=== PATIENT | female | born 1960 | race American Indian/Alaskan Native ===

== ENCOUNTER 2017-02-25 23:38 | Inpatient (IN) | payer SELFPAY ==
[2017-02-26] MEDS ORDERED: Oxycodone/Acetaminophen 5/325 mg Tab ONE (04:10)
[2017-02-26] MEDS ORDERED: Sodium Chloride 0.9% 1,000 ML IV SCH (05:30)
[2017-02-26] MEDS ORDERED: Oxycodone/Acetaminophen 10/325 mg Tab PO PRN (09:15)
--- NOTE | 2017-02-26 15:58 | CON ---
DATE: 02/26/2017 LOCATION: 575, bed 2. REASON FOR CONSULTATION: Shingles. We have a 56-year-old female with a past medical history of benign right jaw cyst presenting with wor sening of a rash on the right forehead which started about 3-4 days ago and it is starting to become more painful. She states that she has never had this kind of rash before, never had this kind of augustus n associated with a rash. Denies fever or chills. No nausea, no vomiting. No headache, no dizzines s. No blurring of vision currently. No dysphagia, no sore throat, no odynophagia, no rhinorrhea. N o abdominal pain, no diarrhea. No dysuria, no hematuria. The infectious disease consult is requested to further evaluate for the possibility of shingles in this patient. REVIEW OF SYSTEMS: As per history of present illness. PAST MEDICAL HISTORY: As per history of present illness. FAMILY MEDICAL HISTORY: Noncontributory. PERSONAL AND SOCIAL HISTORY: The patient denies alcohol abuse or illicit drug use. OBJECTIVE: VITAL SIGNS: The patient is afebrile. The heart rate is 72, respiratory rate 20. HEAD AND NECK: The patient is normocephalic. There is a rash noted with vesicular lesions noted on the forehead area which is compatible with the V1 distribution of the trigeminal nerve. There is no note of vesicles on the tip of the nose, meaning negative Hernanedz's sign. No cervical lymphadenop athy. No meningismus present. HEART: S1, S2 are normal. LUNGS: Decreased breath sounds bilaterally with no rales noted. ABDOMEN: Soft, nontender, nondistended. LABORATORY DATA: Unfortunately, we are unable to review the labs of the patient because the computer systems are down. ASSESSMENT: We have a 56-year-old female with a past medical history of benign cyst on the right jaw, coming in with rash on the forehead and this is more likely a herpes zoster in the distribution of the right trigeminal nerve V1 distribution/single dermatome. PLAN: We have discussed this with the medical team. We have started the patient on IV acyclovir 10 mg IV q. 8 as long as the patient has good and normal renal function. We will leave the pain medicat ions at the discretion of the medical team. We have also asked for HIV test for this patient, [address] [place] [address]. The patient should be on contact isolation. Since this patient does not have a history of immunocompromise as well as there is only 1 dermatome of distribution, there is no need for airborne precautions for this patient. We will continue to follow this patient clinically and monitor her cl inical response to our treatment. Rafael Rosenberg M.D. cc: [id number] TT: 02/26/2017 15:57:27 Confirmation # [id number] Dictation # [id number] [email or web address]
[2017-02-26] MEDS ORDERED: HYDROmorphone 1 mg/ml ISec ONE (17:05)
[2017-02-26] MEDS ORDERED: Morphine 2 mg/ml ISec IVP STA (19:59)
--- NOTE | 2017-02-26 20:48 | CP.PCM.HP ---
<GiovanashaunthereseDonnie ambriz - Last Filed: 02/26/17 20:45> History of Present Illness - History of Present Illness History of Present Illness: 56 y/o F with PMH of HTN presents to the ED for rash over the right side of her face. Pt states she began feeling an uncomfortable sensation on the right side of her face 3 days ago and it has gotten progressively more painful over the last few days. Pain is described as a sharp, throbbing type of pain and is constant in nature. Pain is a 10/10. She says she uses eucalyptus oil at home on the rash but it did not improve. Pt tried using ibuprofen, but it did not help. Pt states she has had the chicken pox in the past. She also mentions that she does have eye pain, but no change in vision. 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 Denies CP, SOB, N/V/D , fever, chills, dysuria. Admits to headaches. PMH: HTN Surgical Hx: None Social Hx: 3 cigarettes per day x 5 years. Denies alcohol or illicit drug use Allergies: NKDA Medication: Atenolol Present on Admission - Present on Admission Any Indicators Present on Admission: No Review of Systems - Constitutional Constitutional: absent: Fatigue, Fever - EENT Eyes: Irritation, Pain. absent: Blind Spots, Blurred Vision, Change in Vision, Requires Corrective Lenses Nose/Mouth/Throat: absent: Nasal Congestion, Nasal Discharge - Cardiovascular Cardiovascular: absent: Chest Pain, Irregular Heart Rhythm - Respiratory Respiratory: absent: Cough, Dyspnea - Gastrointestinal Gastrointestinal: absent: Abdominal Pain, Diarrhea, Vomiting - Genitourinary Genitourinary: absent: Dysuria, Hematuria - Integumentary Integumentary: New Lesions, Rash - Neurological Neurological: Paresthesias, Tingling. absent: Numbness, Syncope - Hematologic/Lymphatic Hematologic: absent: Easy Bleeding, Easy Bruising Meds Allergies/Adverse Reactions: Allergies Allergy/AdvReac Type Severity Reaction Status Date / Time No Known Allergies Allergy Verified 02/26/17 19:48 Physical Exam - Constitutional Appears: Non-toxic, No Acute Distress - Head Exam Head Exam: ATRAUMATIC, NORMAL INSPECTION, NORMOCEPHALIC - Eye Exam Eye Exam: Conjunctival injection, EOMI, Periorbital tenderness, PERRL Additional comments: Right eye pain with upward gaze. Vesicular rash along 1 dermatome on upper right face. - ENT Exam ENT Exam: Mucous Membranes Moist, Normal Exam - Neck Exam Neck exam: Positive for: Normal Inspection. Negative for: Lymphadenopathy - Respiratory Exam Respiratory Exam: Clear to Auscultation Bilateral, NORMAL BREATHING PATTERN. absent: Rales, Rhonchi, Wheezes - Cardiovascular Exam Cardiovascular Exam: RRR, +S1, +S2 - GI/Abdominal Exam GI & Abdominal Exam: Normal Bowel Sounds, Soft. absent: Tenderness - Extremities Exam Extremities exam: Positive for: normal inspection. Negative for: calf tenderness, pedal edema - Neurological Exam Neurological exam: Alert, CN II-XII Intact, Oriented x3 - Psychiatric Exam Psychiatric exam: Normal Affect, Normal Mood - Skin Skin Exam: Rash Additional comments: Vesicular rash on right upper face. Assessment & Plan - Assessment and Plan (Free Text) Plan: 56 y/o F with PMH of HTN presents with herpes zoster opthalmicus. Pt will be admitted for IV antibiotics and have an ophthalmology and ID consult. Pt will be placed on contact precautions. 1. Herpes Zoster Opthalmicus Acyclovir 550 mg IV q8h Dilaudid 0.5 mg q4h NS @ 125 cc/hr Contact precautions Opthalmology consult, Dr. Glasgow ID consult, Dr. Rausch 2. HTN Continue Atenolol 3. Tobacco use Smoking cessation counseled 4. PPX Protonix Zofran Seen, reviewed, and discussed with attending Yoana, PGY-1 <Leslee Garcia - Last Filed: 02/26/17 21:00> Attending/Attestation - Attestation I have personally seen and examined this patient.: Yes I have fully participated in the care of the patient.: Yes I have reviewed all pertinent clinical information: Yes Notes (Text): 02/26/17 21:00 Patient was seen with medical record librarians teacher in the ER. Agree with history, physical examination, assessment and plan.
[2017-02-26 22:06] LABS: BLOOD UREA NITROGEN 11 mg/dL (7-21); CALCIUM 10.3 mg/dL (8.4-10.5); CARBON DIOXIDE 30 mmol/L (21-33); CHLORIDE 95 mmol/L (98-107); GFR AFRICAN-AMERICAN > 60; GLUCOSE,RANDOM 106 mg/dL (70-110); POTASSIUM 4.3 mmol/L (3.6-5.0); SODIUM 135 mmol/L (132-148)
[2017-02-26 22:07] LABS: ALB/GLOB RATIO 0.7 (1.1-1.8); ALKALINE PHOSPHATASE 93 U/L (38-133); ALT/SGPT 26 U/L (7-56); AST/SGOT 41 U/L (15-39); BILIRUBIN,TOTAL 1.1 mg/dL (0.2-1.3); TOTAL PROTEIN 11.3 g/dL (5.8-8.3)
[2017-02-26] MEDS: HYDROmorphone 0.5 mg/0.5 ml ISec IVP PRN (22:11)
[2017-02-27] MEDS: HYDROmorphone 0.5 mg/0.5 ml ISec IVP PRN ×4 (01:52→22:19)
[2017-02-27] MEDS: Sodium Chloride 0.9% 1,000 ML IV SCH ×2 (06:19→15:41)
[2017-02-27 07:21] LABS: HEMATOCRIT 30.9 % (36.0-48.0); MEAN CELL VOLUME 90.6 fL (80.0-105.0); MEAN CORPUSCULAR HEMOGLOBIN 31.1 pg (25.0-35.0); MEAN CORPUSCULAR HGB CONC 34.3 g/dl (31.0-37.0); MEAN PLATELET VOLUME 9.6 fl (7.0-11.0); RED CELL DISTRIBUTION WIDTH 12.6 % (11.5-14.5); WHITE BLOOD COUNT 4.1 10^3/ul (4.5-11.0)
[2017-02-27 08:12] LABS: BLOOD UREA NITROGEN 10 mg/dL (7-21); CALCIUM 8.8 mg/dL (8.4-10.5); CARBON DIOXIDE 29 mmol/L (21-33); CHLORIDE 98 mmol/L (98-107); GFR AFRICAN-AMERICAN > 60; GLUCOSE,RANDOM 96 mg/dL (70-110); POTASSIUM 4.1 mmol/L (3.6-5.0); SODIUM 133 mmol/L (132-148)
--- NOTE | 2017-02-27 08:58 | CON ---
DATE: 02/27/2017 The patient was admitted to the [facility] with herpes zoster ophthalmicus on the right side. VISUAL EXAMINATION: Her vision is 20/20 in both eyes. The eye exam is normal except for an extensiv e herpes zoster on the right upper lid with edema throughout the right upper lid and the right lower lid. Extraocular movement is normal. Corneal exam is normal. ASSESSMENT: The patient has herpes zoster ophthalmicus. I agree with the acyclovir treatment. I re commended that they add Viroptic 1 drop to the right eye 4 times a day. Elijah Glasgow MD cc: 40 TT: 02/27/2017 08:57:50 Confirmation # [id number] Dictation # [id number] en
[2017-02-27] MEDS: TRIFLURIDINE OU SCH ×3 (10:00→18:20)
[2017-02-27] MEDS: Pantoprazole 40 mg EC Tab PO SCH ×2 (10:04→10:07)
[2017-02-27] MEDS: Oxycodone/Acetaminophen 10/325 mg Tab PO PRN (10:07)
--- NOTE | 2017-02-27 10:41 | CP.PCM.PN ---
<Kiah Levine - Last Filed: 02/27/17 13:16> Subjective - Date & Time of Evaluation Date of Evaluation: 02/27/17 Time of Evaluation: 10:38 - Subjective Subjective: HOSPITALISTS PROGRESS NOTE Pt is seen and examined at bedside. No acute events overnight. Pt denies having any CP, SOB, abd pain, N/V/D/C, f/c. Pt is tolerating diet. Pt only c/ o right eye pressure and pain with movement of eye. Pt has difficulty opening her eyelid. Objective - Vital Signs/Intake and Output Vital Signs (last 24 hours): Temp Pulse Resp BP Pulse Ox 98.8 F 73 20 172/86 H 95 02/27/17 08:00 02/27/17 08:00 02/27/17 08:00 02/27/17 10:04 02/27/17 08:00 - Medications Medications: Current Medications Atenolol (Tenormin) 25 mg PO DAILY [facility] Last Admin: 02/27/17 10:04 Dose: 25 mg Home Med (Home Med) 0 unit OU QID [facility] Hydromorphone HCl (Dilaudid) 0.5 mg IVP Q4H PRN PRN Reason: Pain, moderate (4-7) Last Admin: 02/27/17 06:55 Dose: 0.5 mg Acyclovir 550 mg/ Sodium (Chloride) 100 mls @ 100 mls/hr IV Q8H [facility] Last Admin: 02/27/17 06:22 Dose: 100 mls/hr Sodium Chloride (Sodium Chloride 0.9%) 1,000 mls @ 100 mls/hr IV .Q10H [facility] Last Admin: 02/27/17 06:19 Dose: 100 mls/hr Ondansetron HCl (Zofran Tab) 4 mg PO Q4H PRN PRN Reason: Nausea/Vomiting Oxycodone/Acetaminophen (Percocet 10/325 Mg Tab) 1 tab PO Q6H PRN PRN Reason: Pain, Mild (1-3) Last Admin: 02/27/17 10:07 Dose: 1 tab Pantoprazole Sodium (Protonix Ec Tab) 40 mg PO ACB [facility] Last Admin: 02/27/17 10:07 Dose: 40 mg - Labs Labs: 02/27/17 07:00 02/27/17 07:00 - Constitutional Appears: Non-toxic, No Acute Distress - Head Exam Head Exam: ATRAUMATIC - Eye Exam Additional comments: right eye swollen but ocular motion intact - ENT Exam ENT Exam: Mucous Membranes Moist - Respiratory Exam Respiratory Exam: Clear to Ausculation Bilateral, NORMAL BREATHING PATTERN. absent: Rales, Rhonchi, Wheezes - Cardiovascular Exam Cardiovascular Exam: REGULAR RHYTHM, +S1, +S2. absent: Gallop, Rubs, Murmur - GI/Abdominal Exam GI & Abdominal Exam: Soft, Normal Bowel Sounds. absent: Distended, Firm, Guarding, Rigid, Tenderness - Extremities Exam Extremities Exam: absent: Pedal Edema, Tenderness - Neurological Exam Neurological Exam: Alert, Awake, Oriented x3 - Psychiatric Exam Psychiatric exam: Normal Affect, Normal Mood - Skin Skin Exam: Dry, Intact, Normal Color, Warm Assessment and Plan - Assessment and Plan (Free Text) Assessment: 56 y/o F with PMH of HTN presents with herpes zoster opthalmicus. Pt will be admitted for IV antibiotics and have an ophthalmology and ID consult. Pt will be placed on contact precautions. 1. Herpes Zoster Opthalmicus Acyclovir 10mg/kg IV q8h percocet 1 tab po q6 prn dilaudid .5 mg IV q4 prn NS @ 100 cc/hr Contact precautions Opthalmology consult, Dr. Glasgow. Recommend starting patient on eye drops Viroptic ID consult, Dr. Rosenberg. 2. HTN Continue Atenolol 3. Tobacco use Smoking cessation counseled 4. PPX Protonix Zofran Seen, reviewed, and discussed with attending <Kartik Davidson - Last Filed: 02/27/17 14:36> Objective - Vital Signs/Intake and Output Vital Signs (last 24 hours): Temp Pulse Resp BP Pulse Ox 98.8 F 73 20 172/86 H 95 02/27/17 08:00 02/27/17 08:00 02/27/17 08:00 02/27/17 10:04 02/27/17 08:00 - Medications Medications: Current Medications Atenolol (Tenormin) 25 mg PO DAILY [facility] Last Admin: 02/27/17 10:04 Dose: 25 mg Home Med (Home Med) 0 unit OU QID [facility] Last Admin: 02/27/17 10:00 Dose: Not Given Hydromorphone HCl (Dilaudid) 0.5 mg IVP Q4H PRN PRN Reason: Pain, moderate (4-7) Last Admin: 02/27/17 06:55 Dose: 0.5 mg Acyclovir 550 mg/ Sodium (Chloride) 100 mls @ 100 mls/hr IV Q8H [facility] Last Admin: 02/27/17 12:28 Dose: 100 mls/hr Sodium Chloride (Sodium Chloride 0.9%) 1,000 mls @ 100 mls/hr IV .Q10H [facility] Last Admin: 02/27/17 06:19 Dose: 100 mls/hr Ondansetron HCl (Zofran Tab) 4 mg PO Q4H PRN PRN Reason: Nausea/Vomiting Oxycodone/Acetaminophen (Percocet 10/325 Mg Tab) 1 tab PO Q6H PRN PRN Reason: Pain, Mild (1-3) Last Admin: 02/27/17 10:07 Dose: 1 tab Pantoprazole Sodium (Protonix Ec Tab) 40 mg PO ACB [facility] Last Admin: 02/27/17 10:07 Dose: 40 mg - Labs Labs: 02/27/17 07:00 02/27/17 07:00 Attending/Attestation - Attestation I have personally seen and examined this patient.: Yes I have fully participated in the care of the patient.: Yes I have reviewed all pertinent clinical information, including history, physical exam and plan: Yes Notes (Text): 02/27/17 14:31 attending note; Patient seen and examined in examined with resident. Patient is a 56-year-old female admitted with herpes zoster/ophthalmicus. currently on IV acyclovir.new IV fluids to avoid renal failure. Patient was evaluated by ophthalmology DR. Glasgow. started on viroptic eyedrops. ID evaluation appreciated. Right parotid swelling. Patient had recent biopsy suggesting cystic lesion. Follow-up with ENT as outpatient.
[2017-02-27 11:51] LABS: HEMATOCRIT 33.8 % (36.0-48.0); MEAN CELL VOLUME 90.1 fL (80.0-105.0); MEAN CORPUSCULAR HEMOGLOBIN 31.7 pg (25.0-35.0); MEAN CORPUSCULAR HGB CONC 35.2 g/dl (31.0-37.0); MEAN PLATELET VOLUME 10.2 fl (7.0-11.0); RED CELL DISTRIBUTION WIDTH 12.7 % (11.5-14.5); WHITE BLOOD COUNT 3.3 10^3/ul (4.5-11.0)
[2017-02-27 16:04] LABS: HEMATOCRIT 33.8 % (36.0-48.0); MEAN CELL VOLUME 90.1 fL (80.0-105.0); MEAN CORPUSCULAR HEMOGLOBIN 31.7 pg (25.0-35.0); MEAN CORPUSCULAR HGB CONC 35.2 g/dl (31.0-37.0); MEAN PLATELET VOLUME 10.2 fl (7.0-11.0); RED CELL DISTRIBUTION WIDTH 12.7 % (11.5-14.5); WHITE BLOOD COUNT 3.3 10^3/ul (4.5-11.0)
[2017-02-27 16:39] LABS: ALB/GLOB RATIO 0.7 (1.1-1.8); ALKALINE PHOSPHATASE 80 U/L (38-133); ALT/SGPT 32 U/L (7-56); AST/SGOT 39 U/L (15-39); BLOOD UREA NITROGEN 10 mg/dL (7-21); CALCIUM 9.8 mg/dL (8.4-10.5); CARBON DIOXIDE 29 mmol/L (21-33); CHLORIDE 97 mmol/L (98-107); GFR AFRICAN-AMERICAN > 60; GLUCOSE,RANDOM 98 mg/dL (70-110); POTASSIUM 4.3 mmol/L (3.6-5.0); SODIUM 135 mmol/L (132-148); TOTAL PROTEIN 10.1 g/dL (5.8-8.3)
[2017-02-28] MEDS: TRIFLURIDINE OU SCH ×5 (03:19→21:29)
[2017-02-28] MEDS: HYDROmorphone 0.5 mg/0.5 ml ISec IVP PRN (03:22)
[2017-02-28] MEDS: Pantoprazole 40 mg EC Tab PO SCH (09:05)
--- NOTE | 2017-02-28 11:52 | CP.PCM.PN ---
Subjective - Date & Time of Evaluation Date of Evaluation: 02/28/17 Time of Evaluation: 08:00 - Subjective Subjective: patient seen and examined in room 575. Denies any fevers, Chills. Still complaining of right eye pain with movement. Denies any visual loss. Denies any nausea, vomiting. Denies any urinary, bowel symptoms. Tolerating diet well. Ambulating fine. Review of Systems - Constitutional Constitutional: absent: Fever, Chills - EENT Additional comments: R eyelid swelling vesicular lesion on left forehead - Cardiovascular Cardiovascular: absent: Chest Pain - Respiratory Respiratory: absent: Cough, Dyspnea, Dyspnea on Exertion - Gastrointestinal Gastrointestinal: absent: Abdominal Pain - Neurological Neurological: absent: Abnormal Gait, Confusion, Focal Weakness, Weakness - Psychiatric Psychiatric: absent: Anxiety, Depression - Hematologic/Lymphatic Hematologic: absent: Easy Bleeding, Easy Bruising Objective - Vital Signs/Intake and Output Vital Signs (last 24 hours): Temp Pulse Resp BP Pulse Ox 98.1 F 83 18 159/88 H 99 02/28/17 08:00 02/28/17 08:00 02/28/17 08:00 02/28/17 09:05 02/28/17 08:00 Intake and Output: 02/28/17 02/28/17 06:59 18:59 Intake Total 720 Balance 720 - Medications Medications: Current Medications Atenolol (Tenormin) 50 mg PO DAILY [facility] Last Admin: 02/28/17 09:05 Dose: 50 mg Home Med (Home Med) 0 unit OU QID [facility] Last Admin: 02/28/17 09:06 Dose: 1 unit Hydromorphone HCl (Dilaudid) 0.5 mg IVP Q4H PRN PRN Reason: Pain, moderate (4-7) Last Admin: 02/28/17 03:22 Dose: 0.5 mg Acyclovir 550 mg/ Sodium (Chloride) 100 mls @ 100 mls/hr IV Q8H [facility] Last Admin: 02/28/17 04:12 Dose: 100 mls/hr Sodium Chloride (Sodium Chloride 0.9%) 1,000 mls @ 100 mls/hr IV .Q10H [facility] Last Admin: 02/27/17 15:41 Dose: 100 mls/hr Ondansetron HCl (Zofran Tab) 4 mg PO Q4H PRN PRN Reason: Nausea/Vomiting Oxycodone/Acetaminophen (Percocet 10/325 Mg Tab) 1 tab PO Q6H PRN PRN Reason: Pain, Mild (1-3) Last Admin: 02/27/17 10:07 Dose: 1 tab Pantoprazole Sodium (Protonix Ec Tab) 40 mg PO ACB [facility] Last Admin: 02/28/17 09:05 Dose: 40 mg - Labs Labs: 02/27/17 07:00 02/27/17 07:00 - Constitutional Appears: Well, Non-toxic - Head Exam Head Exam: NORMAL INSPECTION - Eye Exam Eye Exam: Normal appearance Additional comments: left eyelid swollen Vesicular eruptions on the left forehead - ENT Exam ENT Exam: Mucous Membranes Moist - Respiratory Exam Respiratory Exam: NORMAL BREATHING PATTERN - Cardiovascular Exam Cardiovascular Exam: REGULAR RHYTHM - GI/Abdominal Exam GI & Abdominal Exam: Soft, Normal Bowel Sounds. absent: Tenderness - Extremities Exam Extremities Exam: absent: Pedal Edema - Back Exam Back Exam: absent: CVA tenderness (L), CVA tenderness (R) - Neurological Exam Neurological Exam: Alert - Psychiatric Exam Psychiatric exam: Normal Affect - Skin Skin Exam: Normal Color Assessment and Plan - Assessment and Plan (Free Text) Assessment: 1.Patient is a 56 year-old female admitted with herpetic ophthalmicus. Currently on IV acyclovir. ID evaluation appreciated. 2.ophthalmology evaluation with appreciated. Continue Viroptic eyedrops. Needs close ophthalmology follow-up as outpatient. 3.Pain management with IV Dilaudid and Percocet. 4. Hypertension; continue atenolol. 5. GI prophylaxis with Protonix. 6.right parotid cyst; needs follow-up with ENT for outpatient surgery. Upon discharge the patient will follow-up with PMD of choice or [facility].
--- NOTE | 2017-02-28 12:59 | CP.PCM.PN ---
Subjective - Date & Time of Evaluation Date of Evaluation: 02/28/17 Time of Evaluation: 11:00 - Subjective Subjective: Patient is comfortable, less pain in the right eye and rash on the forehead is starting to dry up. Objective - Vital Signs/Intake and Output Vital Signs (last 24 hours): Temp Pulse Resp BP Pulse Ox 98.1 F 83 18 159/88 H 99 02/28/17 08:00 02/28/17 08:00 02/28/17 08:00 02/28/17 09:05 02/28/17 08:00 Intake and Output: 02/28/17 02/28/17 06:59 18:59 Intake Total 720 Balance 720 - Medications Medications: Current Medications Atenolol (Tenormin) 50 mg PO DAILY [facility] Last Admin: 02/28/17 09:05 Dose: 50 mg Home Med (Home Med) 0 unit OU QID [facility] Last Admin: 02/28/17 09:06 Dose: 1 unit Hydromorphone HCl (Dilaudid) 0.5 mg IVP Q4H PRN PRN Reason: Pain, moderate (4-7) Last Admin: 02/28/17 03:22 Dose: 0.5 mg Acyclovir 550 mg/ Sodium (Chloride) 100 mls @ 100 mls/hr IV Q8H [facility] Last Admin: 02/28/17 04:12 Dose: 100 mls/hr Sodium Chloride (Sodium Chloride 0.9%) 1,000 mls @ 100 mls/hr IV .Q10H [facility] Last Admin: 02/27/17 15:41 Dose: 100 mls/hr Ondansetron HCl (Zofran Tab) 4 mg PO Q4H PRN PRN Reason: Nausea/Vomiting Oxycodone/Acetaminophen (Percocet 10/325 Mg Tab) 1 tab PO Q6H PRN PRN Reason: Pain, Mild (1-3) Last Admin: 02/27/17 10:07 Dose: 1 tab Pantoprazole Sodium (Protonix Ec Tab) 40 mg PO ACB [facility] Last Admin: 02/28/17 09:05 Dose: 40 mg - Labs Labs: 02/27/17 07:00 02/27/17 07:00 - Constitutional Appears: Non-toxic, No Acute Distress - Head Exam Additional comments: right forehead with dryign up vesicular rash - Eye Exam Eye Exam: EOMI - Neck Exam Neck Exam: absent: Lymphadenopathy, Meningismus - Respiratory Exam Respiratory Exam: Decreased Breath Sounds - Cardiovascular Exam Cardiovascular Exam: +S1, +S2 - GI/Abdominal Exam GI & Abdominal Exam: Soft. absent: Tenderness Assessment and Plan - Assessment and Plan (Free Text) Plan: Assessment herpes zoster on the right forehead, improving Plan continue IV acyclovir and Viroptic drops on the right eye; patient has been seen by Ophtho will continue to monitor clinically Follow up HIV test
[2017-02-28] MEDS: Oxycodone/Acetaminophen 10/325 mg Tab PO PRN (17:21)
[2017-03-01] MEDS: HYDROmorphone 0.5 mg/0.5 ml ISec IVP PRN ×2 (03:56→23:25)
[2017-03-01 05:53] LABS: ADD MANUAL DIFF? NO
[2017-03-01 06:03] LABS: BASO # 0.03 K/mm3 (0.0-2.0); BASO % 0.6 % (0.0-3.0); EOS % 0.8 % (1.5-5.0); GRAN # 3.04 (1.4-6.5); GRAN % 59.8 % (50.0-68.0); HEMATOCRIT 30.5 % (36.0-48.0); LYMPH # 1.6 (1.2-3.4); LYMPH % 31.3 % (22.0-35.0); MEAN CORPUSCULAR HGB CONC 34.4 g/dl (31.0-37.0); MEAN PLATELET VOLUME 9.3 fl (7.0-11.0); MONO # 0.4 (0.1-0.6); MONO % 7.5 % (1.0-6.0); PLATELET COUNT 210 10^3/uL (120.0-450.0); RED CELL DISTRIBUTION WIDTH 12.6 % (11.5-14.5); WHITE BLOOD COUNT 5.1 10^3/ul (4.5-11.0)
[2017-03-01 06:13] LABS: BLOOD UREA NITROGEN 7 mg/dL (7-21); CALCIUM 8.9 mg/dL (8.4-10.5); CARBON DIOXIDE 31 mmol/L (21-33); CHLORIDE 99 mmol/L (98-107); GFR AFRICAN-AMERICAN > 60; GLUCOSE,RANDOM 95 mg/dL (70-110); POTASSIUM 4.1 mmol/L (3.6-5.0); SODIUM 134 mmol/L (132-148)
[2017-03-01] MEDS: Pantoprazole 40 mg EC Tab PO SCH (07:54)
[2017-03-01] MEDS: TRIFLURIDINE OU SCH ×4 (09:11→23:27)
[2017-03-01] MEDS: Oxycodone/Acetaminophen 10/325 mg Tab PO PRN (09:12)
[2017-03-01] MEDS: Sodium Chloride 0.9% 1,000 ML IV SCH (10:45)
--- NOTE | 2017-03-01 12:13 | CP.PCM.PN ---
<Kiah Levine - Last Filed: 03/01/17 12:10> Subjective - Date & Time of Evaluation Date of Evaluation: 03/01/17 Time of Evaluation: 12:10 - Subjective Subjective: HOSPITALISTS PROGRESS NOTE Pt is seen and examined at bedside. No acute events overnight. Patient is resting comfortably. He right eye is visibly swollen and rash on face has crusted vesicles. Patient denies having any vision changes, Cp, Sob, abd pain, N/V/D/C, f/c. Objective - Vital Signs/Intake and Output Vital Signs (last 24 hours): Temp Pulse Resp BP Pulse Ox 98.4 F 76 20 139/76 99 03/01/17 08:00 03/01/17 09:13 03/01/17 08:00 03/01/17 09:13 03/01/17 08:00 Intake and Output: 03/01/17 03/01/17 06:59 18:59 Intake Total 240 Output Total 0 Balance 240 - Medications Medications: Current Medications Atenolol (Tenormin) 50 mg PO DAILY [facility] Last Admin: 03/01/17 09:13 Dose: 50 mg Home Med (Home Med) 0 unit OU QID [facility] Last Admin: 03/01/17 09:11 Dose: 1 unit Hydromorphone HCl (Dilaudid) 0.5 mg IVP Q4H PRN PRN Reason: Pain, moderate (4-7) Last Admin: 03/01/17 03:56 Dose: 0.5 mg Acyclovir 550 mg/ Sodium (Chloride) 100 mls @ 100 mls/hr IV Q8H [facility] Last Admin: 03/01/17 03:57 Dose: 100 mls/hr Sodium Chloride (Sodium Chloride 0.9%) 1,000 mls @ 100 mls/hr IV .Q10H [facility] Last Admin: 03/01/17 10:45 Dose: 100 mls/hr Ondansetron HCl (Zofran Tab) 4 mg PO Q4H PRN PRN Reason: Nausea/Vomiting Oxycodone/Acetaminophen (Percocet 10/325 Mg Tab) 1 tab PO Q6H PRN PRN Reason: Pain, Mild (1-3) Last Admin: 03/01/17 09:12 Dose: 1 tab Pantoprazole Sodium (Protonix Ec Tab) 40 mg PO ACB [facility] Last Admin: 03/01/17 07:54 Dose: 40 mg - Labs Labs: 03/01/17 05:15 03/01/17 05:15 - Constitutional Appears: Non-toxic, No Acute Distress - ENT Exam ENT Exam: Mucous Membranes Moist - Respiratory Exam Respiratory Exam: Clear to Ausculation Bilateral. absent: Rales, Rhonchi, Wheezes - Cardiovascular Exam Cardiovascular Exam: REGULAR RHYTHM, +S1, +S2. absent: Gallop, Rubs, Murmur - GI/Abdominal Exam GI & Abdominal Exam: Soft, Normal Bowel Sounds. absent: Distended, Firm, Guarding, Rigid, Tenderness - Extremities Exam Extremities Exam: absent: Pedal Edema, Tenderness - Neurological Exam Neurological Exam: Alert, Awake, Oriented x3 - Psychiatric Exam Psychiatric exam: Normal Affect, Normal Mood - Skin Skin Exam: Dry, Intact, Normal Color, Warm Assessment and Plan - Assessment and Plan (Free Text) Assessment: 56 y/o F with PMH of HTN presents with herpes zoster opthalmicus. Pt will be admitted for IV antibiotics and have an ophthalmology and ID consult. Pt will be placed on contact precautions. 1. Herpes Zoster Opthalmicus Acyclovir 10mg/kg IV q8h Continue Viroptic eye drops percocet 1 tab po q6 prn dilaudid .5 mg IV q4 prn NS @ 100 cc/hr Contact precautions Opthalmology consult, Dr. Glasgow. ID consult, Dr. Rosenberg. 2. HTN Continue Atenolol 3. Tobacco use Smoking cessation counseled 4. Right parotid cyst - Will f/u outpatiet with ENT for outpatient surgery PPX Protonix Zofran Seen, reviewed, and discussed with attending, Dr. Davidson <Kartik Davidson - Last Filed: 03/01/17 13:34> Objective - Vital Signs/Intake and Output Vital Signs (last 24 hours): Temp Pulse Resp BP Pulse Ox 98.4 F 76 20 139/76 99 03/01/17 08:00 03/01/17 09:13 03/01/17 08:00 03/01/17 09:13 03/01/17 08:00 Intake and Output: 03/01/17 03/01/17 06:59 18:59 Intake Total 240 Output Total 0 Balance 240 - Medications Medications: Current Medications Atenolol (Tenormin) 50 mg PO DAILY [facility] Last Admin: 03/01/17 09:13 Dose: 50 mg Home Med (Home Med) 0 unit OU QID [facility] Last Admin: 03/01/17 09:11 Dose: 1 unit Hydromorphone HCl (Dilaudid) 0.5 mg IVP Q4H PRN PRN Reason: Pain, moderate (4-7) Last Admin: 03/01/17 03:56 Dose: 0.5 mg Acyclovir 550 mg/ Sodium (Chloride) 100 mls @ 100 mls/hr IV Q8H [facility] Last Admin: 03/01/17 03:57 Dose: 100 mls/hr Sodium Chloride (Sodium Chloride 0.9%) 1,000 mls @ 100 mls/hr IV .Q10H [facility] Last Admin: 03/01/17 10:45 Dose: 100 mls/hr Ondansetron HCl (Zofran Tab) 4 mg PO Q4H PRN PRN Reason: Nausea/Vomiting Oxycodone/Acetaminophen (Percocet 10/325 Mg Tab) 1 tab PO Q6H PRN PRN Reason: Pain, Mild (1-3) Last Admin: 03/01/17 09:12 Dose: 1 tab Pantoprazole Sodium (Protonix Ec Tab) 40 mg PO ACB [facility] Last Admin: 03/01/17 07:54 Dose: 40 mg - Labs Labs: 03/01/17 05:15 03/01/17 05:15 Attending/Attestation - Attestation I have personally seen and examined this patient.: Yes I have fully participated in the care of the patient.: Yes I have reviewed all pertinent clinical information, including history, physical exam and plan: Yes Notes (Text): 03/01/17 13:33 attending note; Patient seen and examined in examined with resident. Patient is a 56-year-old female admitted with herpes zoster/ophthalmicus. currently on IV acyclovir. continue IV fluids to avoid renal failure. Patient was evaluated by ophthalmology DR. Glasgow. started on viroptic eyedrops. ID evaluation appreciated. Possible discharge home tomorrow. Right parotid swelling. Patient had recent biopsy suggesting cystic lesion. Follow-up with ENT as outpatient. Follow-up with PMD .
--- NOTE | 2017-03-01 20:08 | CP.PCM.PN ---
Subjective - Date & Time of Evaluation Date of Evaluation: 03/01/17 Time of Evaluation: 12:10 - Subjective Subjective: Comfortable in bed, not in distress, less pain in the right forehead and not in distress. Lesions are dried up. Objective - Vital Signs/Intake and Output Vital Signs (last 24 hours): Temp Pulse Resp BP Pulse Ox 98.2 F 80 20 157/84 H 100 03/01/17 16:00 03/01/17 16:00 03/01/17 16:00 03/01/17 16:00 03/01/17 16:00 Intake and Output: 03/01/17 03/02/17 18:59 06:59 Intake Total 960 Balance 960 - Medications Medications: Current Medications Atenolol (Tenormin) 50 mg PO DAILY [facility] Last Admin: 03/01/17 09:13 Dose: 50 mg Home Med (Home Med) 0 unit OU QID [facility] Last Admin: 03/01/17 17:59 Dose: 1 unit Hydromorphone HCl (Dilaudid) 0.5 mg IVP Q4H PRN PRN Reason: Pain, moderate (4-7) Last Admin: 03/01/17 03:56 Dose: 0.5 mg Acyclovir 550 mg/ Sodium (Chloride) 100 mls @ 100 mls/hr IV Q8H [facility] Last Admin: 03/01/17 19:39 Dose: 100 mls/hr Sodium Chloride (Sodium Chloride 0.9%) 1,000 mls @ 100 mls/hr IV .Q10H [facility] Last Admin: 03/01/17 10:45 Dose: 100 mls/hr Ondansetron HCl (Zofran Tab) 4 mg PO Q4H PRN PRN Reason: Nausea/Vomiting Oxycodone/Acetaminophen (Percocet 10/325 Mg Tab) 1 tab PO Q6H PRN PRN Reason: Pain, Mild (1-3) Last Admin: 03/01/17 09:12 Dose: 1 tab Pantoprazole Sodium (Protonix Ec Tab) 40 mg PO ACB [facility] Last Admin: 03/01/17 07:54 Dose: 40 mg - Labs Labs: 03/01/17 05:15 03/01/17 05:15 - Constitutional Appears: Non-toxic, No Acute Distress - Head Exam Head Exam: NORMAL INSPECTION - ENT Exam ENT Exam: Mucous Membranes Moist Additional comments: right forehead with dried up lesions - Neck Exam Neck Exam: absent: Lymphadenopathy, Meningismus - Respiratory Exam Respiratory Exam: Decreased Breath Sounds - Cardiovascular Exam Cardiovascular Exam: +S1, +S2 - GI/Abdominal Exam GI & Abdominal Exam: Soft. absent: Tenderness Assessment and Plan - Assessment and Plan (Free Text) Plan: Assessment herpes zoster on the right forehead, clinically improving Plan continue IV acyclovir and Viroptic drops on the right eye; patient has been seen by Ophtho will continue to monitor clinically Follow up HIV test
[2017-03-02] MEDS: Sodium Chloride 0.9% 1,000 ML IV SCH (03:47)
[2017-03-02] MEDS: Pantoprazole 40 mg EC Tab PO SCH (06:44)
[2017-03-02 09:23] VITALS: BP 138/78; PULSE 72; RESP 19; TEMP 98; O2SAT 98
[2017-03-02] MEDS: Oxycodone/Acetaminophen 10/325 mg Tab PO PRN (09:58)
[2017-03-02] MEDS: TRIFLURIDINE OU SCH (09:59)
[2017-03-02 11:21] LABS: HEMATOCRIT 30.5 % (36.0-48.0); MEAN CELL VOLUME 90.5 fL (80.0-105.0); MEAN CORPUSCULAR HEMOGLOBIN 31.2 pg (25.0-35.0); MEAN CORPUSCULAR HGB CONC 34.4 g/dl (31.0-37.0); MEAN PLATELET VOLUME 9.6 fl (7.0-11.0); RED CELL DISTRIBUTION WIDTH 12.5 % (11.5-14.5); WHITE BLOOD COUNT 4.5 10^3/ul (4.5-11.0)
[2017-03-02 11:25] LABS: BLOOD UREA NITROGEN 9 mg/dL (7-21); CALCIUM 9.1 mg/dL (8.4-10.5); CARBON DIOXIDE 30 mmol/L (21-33); CHLORIDE 99 mmol/L (98-107); GFR AFRICAN-AMERICAN > 60; GLUCOSE,RANDOM 76 mg/dL (70-110); POTASSIUM 4.2 mmol/L (3.6-5.0); SODIUM 135 mmol/L (132-148)
--- NOTE | 2017-03-02 15:25 | CP.PCM.DIS ---
<Kiah Levine - Last Filed: 03/02/17 15:20> Provider - Provider Date of Admission: 02/26/17 03:15 Attending physician: Juanis Antonio MD Consults: ID: Dr. Rosenberg Time Spent in preparation of Discharge (in minutes): 45 Diagnosis - Discharge Diagnosis (1) HTN (hypertension) Status: Chronic (2) Herpes zoster ophthalmicus of right eye Status: Acute Hospital Course - Lab Results Lab Results: Most Recent Lab Values WBC 4.5 10^3/ul (4.5-11.0) 03/02/17 11:00 RBC 3.37 10^6/uL (3.5-6.1) L 03/02/17 11:00 Hgb 10.5 gm/dL (12.0-16.0) L 03/02/17 11:00 Hct 30.5 % (36.0-48.0) L 03/02/17 11:00 MCV 90.5 fL (80.0-105.0) 03/02/17 11:00 MCH 31.2 pg (25.0-35.0) 03/02/17 11:00 MCHC 34.4 g/dl (31.0-37.0) 03/02/17 11:00 RDW 12.5 % (11.5-14.5) 03/02/17 11:00 Plt Count 246 10^3/uL (120.0-450.0) 03/02/17 11:00 MPV 9.6 fl (7.0-11.0) 03/02/17 11:00 Gran % 59.8 % (50.0-68.0) 03/01/17 05:15 Lymph % (Auto) 31.3 % (22.0-35.0) 03/01/17 05:15 Harrison % (Auto) 7.5 % (1.0-6.0) H 03/01/17 05:15 Eos % (Auto) 0.8 % (1.5-5.0) L 03/01/17 05:15 Baso % (Auto) 0.6 % (0.0-3.0) 03/01/17 05:15 Gran # 3.04 (1.4-6.5) 03/01/17 05:15 Lymph # 1.6 (1.2-3.4) 03/01/17 05:15 Harrison # 0.4 (0.1-0.6) 03/01/17 05:15 Eos # 0.0 (0.0-0.7) 03/01/17 05:15 Baso # 0.03 K/mm3 (0.0-2.0) 03/01/17 05:15 Sodium 135 mmol/L (132-148) 03/02/17 11:00 Potassium 4.2 mmol/L (3.6-5.0) 03/02/17 11:00 Chloride 99 mmol/L (98-107) 03/02/17 11:00 Carbon Dioxide 30 mmol/L (21-33) 03/02/17 11:00 Anion Gap 10 (10-20) 03/02/17 11:00 BUN 9 mg/dL (7-21) 03/02/17 11:00 Creatinine 0.6 mg/dL (0.5-1.4) 03/02/17 11:00 Est GFR ( Amer) > 60 03/02/17 11:00 Est GFR (Non-Af Amer) > 60 03/02/17 11:00 Random Glucose 76 mg/dL (70-110) 03/02/17 11:00 Calcium 9.1 mg/dL (8.4-10.5) 03/02/17 11:00 Total Bilirubin 1.0 mg/dL (0.2-1.3) 02/26/17 10:44 AST 39 U/L (15-39) 02/26/17 10:44 ALT 32 U/L (7-56) 02/26/17 10:44 Alkaline Phosphatase 80 U/L (38-133) 02/26/17 10:44 Total Protein 10.1 g/dL (5.8-8.3) H 02/26/17 10:44 Albumin 4.3 g/dL (3.0-4.8) 02/26/17 10:44 Globulin 5.8 gm/dL 02/26/17 10:44 Albumin/Globulin Ratio 0.7 (1.1-1.8) L 02/26/17 10:44 - Hospital Course Hospital Course: 56 y/o F with PMH of HTN presents with herpes zoster opthalmicus. Patient received IV acyclovir 10mg/kg for 5 days and was placed in isolation. Patients kidney function was monitored during the stay and patient was on continuous IV fluids in order to prevent kidney dysfunction. Ophthalmology was consulted and recommended antiviral eye drops, Varoptic. Patient was explained the importance isolation especially for people who are immunocompromised or . Patient is to follow up with PMD upon discharge. I discussed the risk of spreading the virus to other people (especially immunocompromised and women) and recommending isolating from such people. Patient is discharged with the following medications: Valtrex 1 gm PO TID #21 days and Varoptic eye drops to be used daily. She is to continue her home medication: Atenolol 50 mg po qd. Patient is instructed to drink plenty of water while taking valtrex. Please see MAR for full details. - Date & Time of H&P Date of H&P: 03/02/17 Time of H&P: 15:21 Discharge Exam - Head Exam Head Exam: NORMAL INSPECTION - Eye Exam Eye Exam: EOMI Pupil Exam: PERRL - ENT Exam ENT Exam: Mucous Membranes Moist - Respiratory Exam Respiratory Exam: Clear to PA & Lateral, NORMAL BREATHING PATTERN. absent: Rales, Rhonchi, Wheezes - Cardiovascular Exam Cardiovascular Exam: REGULAR RHYTHM, +S1, +S2. absent: Diastolic murmur, Gallop , Rubs, Systolic Murmur - GI/Abdominal Exam GI & Abdominal Exam: Normal Bowel Sounds, Unremarkable. absent: Distended, Firm , Rigid, Soft, Tenderness - Extremities Exam Additional comments: no edema or tenderness - Neurological Exam Neurological exam: Alert, Oriented x3 - Psychiatric Exam Psychiatric exam: Normal Affect, Normal Mood - Skin Skin Exam: Dry, Intact, Normal Color, Warm Discharge Plan - Discharge Medications Prescriptions: Atenolol [Tenormin] 25 mg PO DAILY #30 tab Home Med 0 unit OU QID #1 ea Valacyclovir HCl [Valtrex] 1 gm PO TID #21 tablet - Follow Up Plan Condition: GOOD Disposition: HOME/ ROUTINE Instructions: Shingles (DC), Regular Diet (DC), Shingles Vaccine (DC) Additional Instructions: Patient is to follow up with PMD upon discharge. I discussed the risk of spreading the virus to other people (especially immunocompromised and women) and recommending isolating from such people. Patient is discharged with the following medications: Valtrex 1 gm PO TID #21 days and Varoptic eye drops to be used daily. She is to continue her home medication: Atenolol 50 mg po qd. Patient is instructed to drink plenty of water while taking valtrex. Referrals: Elijah Glasgow MD [Staff Provider] - <Juanis Antonio - Last Filed: 03/02/17 17:54> Provider - Provider Date of Admission: 02/26/17 03:15 Attending physician: Juanis Antonio MD Hospital Course - Lab Results Lab Results: Most Recent Lab Values WBC 4.5 10^3/ul (4.5-11.0) 03/02/17 11:00 RBC 3.37 10^6/uL (3.5-6.1) L 03/02/17 11:00 Hgb 10.5 gm/dL (12.0-16.0) L 03/02/17 11:00 Hct 30.5 % (36.0-48.0) L 03/02/17 11:00 MCV 90.5 fL (80.0-105.0) 03/02/17 11:00 MCH 31.2 pg (25.0-35.0) 03/02/17 11:00 MCHC 34.4 g/dl (31.0-37.0) 03/02/17 11:00 RDW 12.5 % (11.5-14.5) 03/02/17 11:00 Plt Count 246 10^3/uL (120.0-450.0) 03/02/17 11:00 MPV 9.6 fl (7.0-11.0) 03/02/17 11:00 Gran % 59.8 % (50.0-68.0) 03/01/17 05:15 Lymph % (Auto) 31.3 % (22.0-35.0) 03/01/17 05:15 Harrison % (Auto) 7.5 % (1.0-6.0) H 03/01/17 05:15 Eos % (Auto) 0.8 % (1.5-5.0) L 03/01/17 05:15 Baso % (Auto) 0.6 % (0.0-3.0) 03/01/17 05:15 Gran # 3.04 (1.4-6.5) 03/01/17 05:15 Lymph # 1.6 (1.2-3.4) 03/01/17 05:15 Harrison # 0.4 (0.1-0.6) 03/01/17 05:15 Eos # 0.0 (0.0-0.7) 03/01/17 05:15 Baso # 0.03 K/mm3 (0.0-2.0) 03/01/17 05:15 Sodium 135 mmol/L (132-148) 03/02/17 11:00 Potassium 4.2 mmol/L (3.6-5.0) 03/02/17 11:00 Chloride 99 mmol/L (98-107) 03/02/17 11:00 Carbon Dioxide 30 mmol/L (21-33) 03/02/17 11:00 Anion Gap 10 (10-20) 03/02/17 11:00 BUN 9 mg/dL (7-21) 03/02/17 11:00 Creatinine 0.6 mg/dL (0.5-1.4) 03/02/17 11:00 Est GFR ( Amer) > 60 03/02/17 11:00 Est GFR (Non-Af Amer) > 60 03/02/17 11:00 Random Glucose 76 mg/dL (70-110) 03/02/17 11:00 Calcium 9.1 mg/dL (8.4-10.5) 03/02/17 11:00 Total Bilirubin 1.0 mg/dL (0.2-1.3) 02/26/17 10:44 AST 39 U/L (15-39) 02/26/17 10:44 ALT 32 U/L (7-56) 02/26/17 10:44 Alkaline Phosphatase 80 U/L (38-133) 02/26/17 10:44 Total Protein 10.1 g/dL (5.8-8.3) H 02/26/17 10:44 Albumin 4.3 g/dL (3.0-4.8) 02/26/17 10:44 Globulin 5.8 gm/dL 02/26/17 10:44 Albumin/Globulin Ratio 0.7 (1.1-1.8) L 02/26/17 10:44 Attending/Attestation - Attestation I have personally seen and examined this patient.: Yes I have fully participated in the care of the patient.: Yes I have reviewed all pertinent clinical information, including history, physical exam and plan: Yes Notes (Text): I have seen and examined the patient with the resident. This is 56 year old female who got admitted with herpes zoster/ophthalmicus treated with IV acyclovir. All her lesions are crusted now. Discussed with ID. Will discharge patient on valtrex and viroptic eye drops. Patient had recent biopsy of right parotid gland suggesting cystic lesion. Follow-up with ENT as outpatient. Follow-up with PMD . Dr Juanis Antonio
== END 2017-03-02 18:28 | disposition home or self-care (01) | DRG 125 ==
LOC: ED 23:38 → ERH 02-26 03:15 → 5RSO 02-26 10:25
PROVIDERS: ADMIT Internal Medicine; ATTEND Hospitalist
DX: B02.30 Zoster ocular disease, unspecified (principal); I10 Essential (primary) hypertension; F17.210 Nicotine dependence, cigarettes, uncomplicated; K11.6 Mucocele of salivary gland